=== PATIENT | female | born 1965 | race Caucasian/White ===

== ENCOUNTER 2018-03-08 08:21 | Day surgery (SDC) | payer OTHER ==
[2018-03-08] MEDS ORDERED: MIDAZOLAM 1 MG/ML 2 ML INJ ×2 (10:28→10:29)
[2018-03-08] MEDS ORDERED: FENTAnyl 50 MCG/ML VIAL (10:28)
== END 2018-03-08 12:56 | disposition home or self-care (01) ==
LOC: GIL 08:21
DX: Z12.11 Encounter for screening for malignant neoplasm of colon (principal); K63.5 Polyp of colon; B96.81 Helicobacter pylori [H. pylori] as the cause of diseases classified elsewhere; K21.9 Gastro-esophageal reflux disease without esophagitis; K29.60 Other gastritis without bleeding
CPT/HCPCS: 43239